=== PATIENT | female | born 1935 | race Caucasian/White ===

== ENCOUNTER 2017-05-11 11:00 | Inpatient (IN) | payer MEDICARE, OTHER ==
--- NOTE | 2017-05-16 16:20 | HISTORY AND PHYSICAL ---
PROVIDER: Date of Admission: 05/17/17 Admitting Provider: DANNIE UGALDE MD Attending Provider: DANNIE UGALDE MD Primary Care Provider: CHIEF COMPLAINT: Left knee pain HISTORY OF PRESENT ILLNESS: The patient is an 81-year-old female with a long-standing history of left knee pain and underlying osteoarthritis of the knee. She has failed long-term nonoperative management including injections, activity modification, and medications. Her symptoms have become quite severe, limiting her activities of daily living. Radiographs confirm the presence of severe arthrosis of the knee , and she is therefore being admitted for left total knee arthroplasty. PAST MEDICAL HISTORY: Breast cancer, basal cell carcinoma, hyperlipidemia, and hypertension. SOCIAL HISTORY: The patient is a non-smoker and denies alcohol use. FAMILY HISTORY: Noncontributory MEDICATIONS: Oxybutynin, losartan. ALLERGIES: No known drug allergies. REVIEW OF SYSTEMS: Negative the review of systems is negative for any recent illness, and is also negative for chest pain, shortness of breath, or unexplained fever or weight loss. The review of systems is otherwise noncontributory. PHYSICAL EXAMINATION: GENERAL:Well-appearing senior female, no apparent distress, alert and oriented 3. INTEGUMENTARY:Clear HEAD AND NECK:NC/AT EOMI CHEST AND LUNG:Lungs clear to auscultation CARDIOVASCULAR:Regular rate and rhythm without murmur ABDOMEN:Soft, normoactive bowel sounds NEUROLOGIC:Nonfocal MUSCULOSKELETAL:Physical examination of the left knee reveals that there is mild soft tissue swelling but no effusion. She has no obvious deformity, although there is little bit of varus position of the left knee. She has full extension and flexes to 125. There is no varus or valgus instability and a negative Burton. She is tender to palpation at the medial joint line. IMAGING: Plain radiographs of the knee reveal marked joint space narrowing of the medial compartment, with associated sclerosis and subchondral irregularity. She has fairly severe patellofemoral arthrosis, and mild lateral compartment arthrosis. Assessment and Plan - Date of Encounter Date of Encounter: 05/16/17 (1) Primary osteoarthritis of left knee Status: Chronic Assessment and plan: Assessment: Severe osteoarthritis of the left knee, with the area of worst involvement being that of the medial compartment. Plan: The patient will be admitted to the hospital and taken to the operating room for left total knee arthroplasty. We have discussed the operation, risks, and indications. The risks of the procedure include but are not limited to: Infection, blood vessel or nerve injury, persistent pain or stiffness in the knee, premature failure or loosening of the implants, or deep vein thrombosis which could potentially lead to a fatal pulmonary embolism. The patient has acknowledged the risks and desires to proceed as planned.
[2017-05-17] MEDS ORDERED: MIDAZOLAM HCL 2 MG/2 ML SYR IV PRN ×2 (07:16→09:01)
[2017-05-17] MEDS ORDERED: FAMOTIDINE IN SALINE, ISO-OSM 20 MG/50 ML PIGGYBACK IV SCH ×2 (07:16→09:01)
[2017-05-17] MEDS ORDERED: LIDOCAINE HCL 1% 20 ML VIAL SUBCUT PRN ×2 (07:16→09:01)
[2017-05-17] MEDS ORDERED: LACTATED RINGERS 1,000 ML IV SCH ×4 (08:00→14:01)
[2017-05-17] MEDS ORDERED: TRANEXAMIC ACID 1,000 MG in NORMAL SALINE 100 ML IV SCH ×2 (09:00→09:01)
[2017-05-17] MEDS ORDERED: ceFAZolin 1 GM in NORMAL SALINE MINI-BAG+ 100 ML IV PRN ×2 (09:00→09:01)
[2017-05-17] MEDS ORDERED: TRANEXAMIC ACID 1,000 MG/10 ML VIAL IV ONE (09:55)
[2017-05-17] MEDS ORDERED: NORFLURANE/HFC 245FA 1 APPLIC CAN TOPICAL ONE (09:55)
[2017-05-17] MEDS ORDERED: MIDAZOLAM HCL 2 MG/2 ML VIAL ONE ×2 (11:19→11:21)
[2017-05-17] MEDS ORDERED: FENTANYL 100 MCG/2 ML VIAL ONE (11:19)
[2017-05-17] MEDS ORDERED: MORPHINE SULFATE/PF 10 MG/10 ML VIAL ONE (11:20)
[2017-05-17] MEDS ORDERED: EPHEDrine SULFATE 50 MG/ML VIAL ONE (11:22)
[2017-05-17] MEDS ORDERED: NORMAL SALINE FLUSH 30 ML ONE (11:36)
[2017-05-17] MEDS ORDERED: KETOROLAC TROMETHAMINE 30 MG/ML VIAL ONE (11:36)
[2017-05-17] MEDS ORDERED: ROPIVACAINE HCL 0.5% 30 ML ONE (11:36)
[2017-05-17] MEDS ORDERED: BUPIVACAINE/EPI 0.5% 50 ML VIAL INFILTRAT ONE (11:37)
[2017-05-17] MEDS ORDERED: LIDOCAINE HCL 1% 20 ML VIAL ONE (12:10)
[2017-05-17] MEDS ORDERED: DIPHENHYDRAMINE 25 MG CAPSULE PO PRN (14:01)
[2017-05-17] MEDS ORDERED: MORPHINE SULFATE 10 MG/ML SYR IV PRN (14:01)
[2017-05-17] MEDS ORDERED: NALOXONE HCL 0.4 MG/ML VIAL IV PRN ×3 (14:01)
[2017-05-17] MEDS ORDERED: NALBUPHINE HCL 10 MG/ML AMP IV PRN (14:01)
[2017-05-17] MEDS ORDERED: DIPHENHYDRAMINE 50 MG/ML VIAL IV PRN (14:01)
[2017-05-17] MEDS ORDERED: ONDANSETRON HCL 4 MG/2 ML VIAL IV PRN (14:01)
[2017-05-17] MEDS ORDERED: FENTANYL 100 MCG/2 ML VIAL IV PRN (14:01)
[2017-05-17] MEDS ORDERED: MORPHINE SULFATE 2 MG/ML SYR IV PRN (14:21)
--- NOTE | 2017-05-17 14:32 | PROCEDURE NOTE: Orthopedics ---
Orthopedic Procedure note - Brief Operative Note Date of procedure: 05/17/17 Pre-Op Diagnosis: SEVERE ARTHRITIS OF LEFT KNEE Post-op diagnosis: same Implants: KOBE PERSONA-NATURAL TIBIA CEMENTED- LOT#[id number], REF#[id number], EXP-03/30/2027. KOBE PERSONA FEMUR, TRABECULAR METAL, LOT#[id number], REF# [id number], EXP 10/30/2025. KOBE PERSONA ALL POLY PATELLA, CEMENTED.29MM X 8.0MM, LOT#[id number], REF#[id number], EXP 03/30/2025 Anesthesia Type: Block/ General Physician: DANNIE UGALDE Estimated Blood Loss: 20 Total Tourniquet Time (mins): 115 Specimen/Pathology: none sent Sponge/instrument count: correct X-ray/Fluoroscopy: No Condition: stable Disposition: PACU
[2017-05-17] MEDS: LACTATED RINGERS 1,000 ML IV SCH (16:23)
[2017-05-17] MEDS: ceFAZolin 1 GM in NORMAL SALINE MINI-BAG+ 100 ML IV SCH (16:24)
--- NOTE | 2017-05-17 20:08 | OPERATIVE NOTE: Orthopedic ---
DATE OF SURGERY: 05/17/17 SURGEON: Armand ANESTHESIA: Spinal block PREOPERATIVE DIAGNOSIS: Severe osteoarthritis of the left knee POSTOPERATIVE DIAGNOSIS: Same as above PROCEDURE PERFORMED: Left total knee arthroplasty IMPLANTS: Biomet Persona knee, size 8 uncemented femoral component, size D cemented tibial component, with a medial congruent 11 mm polyethylene insert INDICATION FOR PROCEDURE: The patient is an 81-year-old female with a long-standing history of osteoarthritis of her left knee. She has failed long-term nonoperative management, and her symptoms have become so severe that they severely limit her activities of daily living. Radiographs confirm the presence of severe osteoarthritis of the left knee, and therefore she was taken to the operating room for left total knee arthroplasty. SUMMARY: After informed consent was obtained, the patient was taken to the operating room where she was placed in the supine position under spinal block anesthesia. After adequate anesthesia was achieved the left knee lower extremity were prepped and draped in usual sterile fashion, the limb was gently exsanguinated, and a tourniquet was inflated about the proximal thigh to 275 mmHg. A longitudinal incision was then performed anteriorly, and the subcutaneous tissue was sharply dissected down to the extensor retinaculum. The extensor retinaculum was incised in a median parapatellar fashion, and then dissection was carried out beneath the retinaculum medially in order to expose the medial tibial plateau. The patella was then partially everted, and the infrapatellar fat pad was excised. The patella was then retracted laterally, and the knee was brought up into extension. A meniscectomy was performed, and the anterior cruciate ligament was excised. Also a synovectomy was performed in the suprapatellar pouch. A rongeur was then used to remove osteophytes, and to establish the starting position for the femoral intramedullary guide. The drill was used to establish entry into the femoral canal, and then the femoral guide was pushed up into the medullary canal. The femoral cutting block was initially positioned to resect 11 mm, but that appear to be a generous resection, so we went with in the -2 position. The block was secured using pins, and then the oscillating saw was used to perform the distal femoral osteotomy. Attention was then focused on the proximal tibia at which time the tibial guide was positioned in order to allow resection of 10 mm from the less involved side. Once proper position was achieved, the cutting guide was held in place using pins and an oscillating saw was used to perform a tibial cut. The resected portion of the tibia was then removed, and we used the soft tissue balancing block and extension to check the gap. The 10 mm block was somewhat tight, and therefore we brought the knee back up into flexion, and repositioned the femoral cutting guide in order to resect the additional 2 mm. This time we placed the knee into extension, the block was quite stable with the knee in full extension. The knee was then brought back up into flexion, and the femur was sized to a size 8. The four-way cutting block was positioned under the distal femur and again held in place using pins. The remaining cuts were then performed using oscillating saw. The trial femoral components and trial tibial components were then placed into the knee, and the knee was brought out into extension. Once again the knee easily achieved full extension, and had very slight opening with valgus stress but was otherwise stable. Also she had very good rollback in flexion. The remainder of the tibial preparation was then completed using the drill and keel punch. The patella was then prepared, by first measuring the thickness, after which we resected 10 mm from the articular side of the patella in order to accommodate the patellar button. The guide was clamped onto the patella and the drill holes were then performed through the guide. The knee was again brought up into flexion, and the lug holes were drilled in the distal femur as well. At that time, all of the trial components were removed, and the wound and bony surfaces were all irrigated with copious muscle sterile saline under pulsed lavage. We then injected the posterior joint capsule as well as the medial and lateral joint capsules with the orthopedic cocktail. The proximal tibia was then carefully dried, after which the tibial component was cemented into place. The excess cement was removed, and then the femoral surface was also lavaged after which the uncemented femoral component was tapped into place. Once again the trial liner was placed into the knee and the knee was brought out into extension in order to allow the cement to harden. The patella was then lavaged and carefully dried, after which the patellar component was also cemented into place. Once again the excess cement was removed. Once all the cement had hardened, we reduced the patella and move the knee through range of motion. The patella was noted to track quite well. Once again there is very good rollback, but this time the patient appear to have slight hyperextension and also again was noted to have a little bit of opening with valgus stress. Therefore we decided to trial an 11 mm insert. This insert actually still provided very good rollback, as well as full extension. However, there is now better stability with valgus stress. We therefore selected the 11 mm insert. The wound was irrigated once again with copious amounts of sterile, and then the polyethylene insert was pushed into position. We checked range of motion and stability one last time, and once again she was noted to have full extension , very good rollback in flexion, and good varus and valgus stability as well as patellar tracking. A deep drain was then placed, and the retinaculum was closed using #2 FiberWire in the high tension areas, and #1 Vicryl in an interrupted [id number] fashion for the remainder of the retinaculum. The remainder of the orthopedic cocktail was then injected along the retinacular incision. The subcutaneous tissue was closed in layers using 0 and 2-0 Vicryl, and then the skin was closed using skin stephanie. A bulky lightly compressive sterile dressing was then applied. The patient tolerated the procedure well and was taken to the recovery room in stable condition. ESTIMATED BLOOD LOSS: 20 mL FLUIDS: 1450 mL TOURNIQUET TIME: 115 minutes
[2017-05-17] MEDS: CELECOXIB 100 MG CAPSULE PO SCH (21:33)
[2017-05-17] MEDS: DOCUSATE SODIUM 100 MG CAPSULE PO SCH (21:33)
[2017-05-18] MEDS: ceFAZolin 1 GM in NORMAL SALINE MINI-BAG+ 100 ML IV SCH ×2 (00:35→06:48)
[2017-05-18] MEDS: LACTATED RINGERS 1,000 ML IV SCH ×2 (05:13→18:16)
[2017-05-18 06:54] LABS: BLOOD UREA NITROGEN 11 mg/dL (7-17); CALCIUM 8.5 mg/dL (8.4-10.2); CHLORIDE 104 mmol/L (98-107); GLUCOSE 112 mg/dL (70-100); POTASSIUM 3.7 mmol/L (3.5-5.1); SODIUM 138 mmol/L (137-145)
[2017-05-18 07:00] LABS: HEMATOCRIT 42.5 % (36.0-48.0); HEMOGLOBIN 14.5 g/dL (12.0-16.0); MEAN CORPUSCULAR HEMOGLOBIN 32.6 pg (29.0-35.0); RED BLOOD COUNT 4.46 X 10^6uL (4.20-6.10); WHITE BLOOD COUNT 8.2 X 10^3uL (3.9-10.7)
[2017-05-18 07:01] LABS: BASOPHIL# 0.1 X 10^3uL (0.0-0.1); BASOPHILS 0.6 % (0.0-2.0); EOSINOPHILS 1.9 % (0.0-6.0); EOSINOPHILS# 0.2 X 10^3uL (0.0-0.4); LYMPHOCYTES 17.5 % (20.0-40.0); LYMPHOCYTES# 1.4 X 10^3uL (0.8-3.8); MEAN CORPUS. HGB CONCENTRATION 34.2 g/dL (32.0-36.0); MEAN PLATELET VOLUME 9.2 fL (7.4-10.4); MONOCYTES# 0.8 X 10^3uL (0.2-1.0); NEUTROPHILS# 5.8 X 10^3uL (2.6-6.7); PLATELET COUNT 167 X 10^3uL (130-440); RED CELL DISTRIBUTION WIDTH 12.1 % (11.5-14.5)
--- NOTE | 2017-05-18 08:20 | PROGRESS NOTE: Orthopedics ---
Orthopedic PN Subjective - Subjective Principal Diagnosis: Post op L TKA Post-op Day: 1 Interval history: Pt feels fairly well. Moderate pain. Ortho PN Objective Exam - Latest Vital Signs and I&O Latest Vital Signs/I&O: Vital Signs Temp 36.6 C 05/18/17 06:36 Pulse 73 05/18/17 06:36 Resp 15 05/18/17 06:36 BP 163/76 05/18/17 06:36 Pulse Ox 93 05/18/17 06:36 Intake & Output 05/17/17 05/18/17 05/18/17 17:59 05:59 17:59 Intake Total 2400 1918 Output Total 1750 560 Balance 650 1358 Weight 82.1 kg 82.1 kg Intake: IV 2200 1118 Left Hand 2200 1118 Oral 200 800 Output: Drainage 210 Left Knee 210 Urine 1750 350 Uretheral (Kaufman) 200 Other: Urine Appearance Clear Clear Urine Color Pale Straw Uretheral (Kaufman) Yellow Voiding Method Indwelling Catheter Indwelling Catheter # Voids 1 - Post-Operative Exam Dressing Status: dry & intact Drainage Amount: none Active Motor: intact Sensation: intact - Lab Labs: Laboratory Last Values WBC 8.2 X 10^3uL (3.9-10.7) 05/18/17 05:00 RBC 4.46 X 10^6uL (4.20-6.10) 05/18/17 05:00 Hgb 14.5 g/dL (12.0-16.0) 05/18/17 05:00 Hct 42.5 % (36.0-48.0) 05/18/17 05:00 MCV 95.0 fL (80.0-100.0) 05/18/17 05:00 MCH 32.6 pg (29.0-35.0) 05/18/17 05:00 MCHC 34.2 g/dL (32.0-36.0) 05/18/17 05:00 RDW 12.1 % (11.5-14.5) 05/18/17 05:00 Plt Count 167 X 10^3uL (130-440) 05/18/17 05:00 MPV 9.2 fL (7.4-10.4) 05/18/17 05:00 Neutrophils % 70.0 % (54.0-75.0) 05/18/17 05:00 Lymphocytes % 17.5 % (20.0-40.0) L 05/18/17 05:00 Eosinophils % 1.9 % (0.0-6.0) 05/18/17 05:00 Basophils % 0.6 % (0.0-2.0) 05/18/17 05:00 Neutrophils # 5.8 X 10^3uL (2.6-6.7) 05/18/17 05:00 Lymphocytes # 1.4 X 10^3uL (0.8-3.8) 05/18/17 05:00 Monocytes 10.0 % (2.0-10.0) 05/18/17 05:00 Monocytes # 0.8 X 10^3uL (0.2-1.0) 05/18/17 05:00 Eosinophils # 0.2 X 10^3uL (0.0-0.4) 05/18/17 05:00 Basophils # 0.1 X 10^3uL (0.0-0.1) 05/18/17 05:00 Sodium 138 mmol/L (137-145) 05/18/17 05:00 Potassium 3.7 mmol/L (3.5-5.1) 05/18/17 05:00 Chloride 104 mmol/L (98-107) 05/18/17 05:00 Carbon Dioxide 24 mmol/L (22-30) 05/18/17 05:00 BUN 11 mg/dL (7-17) 05/18/17 05:00 Creatinine 0.7 mg/dL (0.5-1.0) 05/18/17 05:00 GFR Calculation Not Reportable 05/18/17 05:00 Glucose 112 mg/dL (70-100) H 05/18/17 05:00 Hemoglobin A1c 6.1 % 05/17/17 09:40 Calcium 8.5 mg/dL (8.4-10.2) 05/18/17 05:00 Assessment and Plan-Ortho - Date of Encounter Date of Encounter: 05/18/17 (1) Primary osteoarthritis of left knee Status: Chronic Assessment and plan: Doing well post op L TKA Plan: Begin mobilization/PT. Monitor H/H Current Visit: Yes Quality Questions - VTE Prophylaxis Assessment VTE Present on Admission?: No Patient at risk for venous thromboembolism?: Yes VTE Risk Level: High Risk Pharmaceutical VTE prophylaxis contraindication reason: N/A- VTE prophylaxsis ordered Mechanical VTE prophylaxis contraindication reason: N/A- VTE prophylaxsis ordered
[2017-05-18] MEDS ORDERED: ENALAPRILAT DIHYDRATE 1.25 MG/ML VIAL IV PRN (08:50)
--- NOTE | 2017-05-18 08:58 | PROGRESS NOTE: IM APSO ---
Assessment and Plan - Date of Encounter Date of Encounter: 05/18/17 (1) Hypertension Status: Acute Assessment and plan: (asked to review medical comorbidity post op, addressing pain/htn/urge incontinenc) Pain control adequate, increasing losartan, added prn vasotec and will follow; preop EKG with Normal possible/borderline LVH Current Visit: Yes (2) Mixed urge and stress incontinence Status: Acute Assessment and plan: currently mittal, will try to dc soon, ammended oxybutinin, follow sx/sx of urge/ stress incontinence and will also monitor for sx/sx of uti. Current Visit: Yes (3) Primary osteoarthritis of left knee Status: Chronic Assessment and plan: now s/p tka, monitor pain/progress with PT, hemoglobin. Routine post op care per ortho. Current Visit: Yes - Time Spent With Patient Total time spent with greater than 50% in coordination of care (as documented) at patient's floor/unit and/or counseling patient: 25 - 35 minutes IM: PN Subjective General: pain, no fever, no chills (Patient seen May 09 for PreOp examination, she was noted to have urge frequency and intermittent incontinence which was worrisome for risk of fall nocte post op. She also had a normal EKG but elevated blood pressure and started Losartan. Symptoms of urge frequency and home Blood Pressure evaluations improved. She has done well post op, pain control adequate when takes medications. Has mittal. She is currently being seen by PT (Grace Cartwright DPT)) HEENT: no headache Cardiovascular: no chest pain, no chest pressure, no palpitations Respiratory: no cough Gastrointestinal: no abdominal pain Musculoskeletal: pain Neurological: other IM: PN Objective Exam - I&O/Vital Signs I&O: Intake & Output 05/17/17 05/18/17 05/18/17 21:59 05:59 13:59 Intake Total 2400 1918 Output Total 1680 430 Balance 720 1488 Weight 82.1 kg Intake: IV 2200 1118 Left Hand 2200 1118 Oral 200 800 Output: Drainage 130 80 Left Knee 130 80 Urine 1550 350 Other: Urine Appearance Clear Clear Urine Color Pale Straw Voiding Method Indwelling Catheter Indwelling Catheter # Voids 1 Vital Signs: Last Vital Signs Temp 36.6 C 05/18/17 06:36 Pulse 73 05/18/17 06:36 Resp 15 05/18/17 06:36 BP 163/76 05/18/17 06:36 Pulse Ox 93 05/18/17 06:36 Oxygen Flow Rate 0.5 Oxygen Delivery Method Nasal Cannula - Constitutional General appearance: Present: average body habitus - Head Head exam: Present: atraumatic - Eye Eye exam: Present: normal appearance - ENT ENT exam: Present: mucous membranes moist - Respiratory Respiratory exam: Present: CTAB - Cardiovascular Cardiovascular exam: Present: RRR - GI/Abdominal GI/Abdominal exam: Present: normal bowel sounds, soft. Absent: tenderness - Lab Labs: Laboratory Last Values WBC 8.2 X 10^3uL (3.9-10.7) 05/18/17 05:00 RBC 4.46 X 10^6uL (4.20-6.10) 05/18/17 05:00 Hgb 14.5 g/dL (12.0-16.0) 05/18/17 05:00 Hct 42.5 % (36.0-48.0) 05/18/17 05:00 MCV 95.0 fL (80.0-100.0) 05/18/17 05:00 MCH 32.6 pg (29.0-35.0) 05/18/17 05:00 MCHC 34.2 g/dL (32.0-36.0) 05/18/17 05:00 RDW 12.1 % (11.5-14.5) 05/18/17 05:00 Plt Count 167 X 10^3uL (130-440) 05/18/17 05:00 MPV 9.2 fL (7.4-10.4) 05/18/17 05:00 Neutrophils % 70.0 % (54.0-75.0) 05/18/17 05:00 Lymphocytes % 17.5 % (20.0-40.0) L 05/18/17 05:00 Eosinophils % 1.9 % (0.0-6.0) 05/18/17 05:00 Basophils % 0.6 % (0.0-2.0) 05/18/17 05:00 Neutrophils # 5.8 X 10^3uL (2.6-6.7) 05/18/17 05:00 Lymphocytes # 1.4 X 10^3uL (0.8-3.8) 05/18/17 05:00 Monocytes 10.0 % (2.0-10.0) 05/18/17 05:00 Monocytes # 0.8 X 10^3uL (0.2-1.0) 05/18/17 05:00 Eosinophils # 0.2 X 10^3uL (0.0-0.4) 05/18/17 05:00 Basophils # 0.1 X 10^3uL (0.0-0.1) 05/18/17 05:00 Sodium 138 mmol/L (137-145) 05/18/17 05:00 Potassium 3.7 mmol/L (3.5-5.1) 05/18/17 05:00 Chloride 104 mmol/L (98-107) 05/18/17 05:00 Carbon Dioxide 24 mmol/L (22-30) 05/18/17 05:00 BUN 11 mg/dL (7-17) 05/18/17 05:00 Creatinine 0.7 mg/dL (0.5-1.0) 05/18/17 05:00 GFR Calculation Not Reportable 05/18/17 05:00 Glucose 112 mg/dL (70-100) H 05/18/17 05:00 Hemoglobin A1c 6.1 % 05/17/17 09:40 Calcium 8.5 mg/dL (8.4-10.2) 05/18/17 05:00 (1) Hypertension Qualifiers: Hypertension type: essential hypertension Qualified Code(s): I10 - Essential (primary) hypertension
[2017-05-18] MEDS ORDERED: OXYBUTYNIN CHLORIDE 5 MG PO SCH (09:00)
[2017-05-18] MEDS ORDERED: NON-FORMULARY MEDICATION (Losartan Potassium 25 MG) PO SCH (09:00)
[2017-05-18] MEDS ORDERED: LOSARTAN POTASSIUM 50 MG TABLET PO SCH (09:00)
[2017-05-18] MEDS ORDERED: OXYBUTYNIN CHLORIDE 5 MG TABLET PO SCH (09:00)
[2017-05-18] MEDS: ONDANSETRON HCL 4 MG/2 ML VIAL IV PRN (09:45)
[2017-05-18] MEDS: DOCUSATE SODIUM 100 MG CAPSULE PO SCH ×2 (09:46→20:47)
[2017-05-18] MEDS: LOSARTAN POTASSIUM 50 MG TABLET PO SCH (09:47)
[2017-05-18] MEDS: CELECOXIB 100 MG CAPSULE PO SCH ×2 (09:47→20:47)
[2017-05-18] MEDS: ENOXAPARIN SODIUM 40 MG/0.4 ML SYR SUBCUT SCH (09:48)
[2017-05-18] MEDS: MULTIVITAMINS THERAPEUTIC 1 TABLET PO SCH (09:48)
[2017-05-18] MEDS: OXYBUTYNIN CHLORIDE 5 MG TABLET PO SCH ×2 (09:49→20:50)
[2017-05-18] MEDS ORDERED: ACETAMINOPHEN 325 MG TABLET PO ONE (20:40)
[2017-05-18] MEDS: ACETAMINOPHEN 325 MG TABLET PO PRN (21:12)
[2017-05-19] MEDS: ACETAMINOPHEN 325 MG TABLET PO PRN ×4 (04:05→18:22)
[2017-05-19] MEDS: LACTATED RINGERS 1,000 ML IV SCH (06:27)
[2017-05-19 06:45] LABS: HEMATOCRIT 35.9 % (36.0-48.0); HEMOGLOBIN 12.1 g/dL (12.0-16.0)
[2017-05-19] MEDS: CELECOXIB 100 MG CAPSULE PO SCH ×2 (08:51→20:43)
[2017-05-19] MEDS: ENOXAPARIN SODIUM 40 MG/0.4 ML SYR SUBCUT SCH (08:51)
[2017-05-19] MEDS: OXYBUTYNIN CHLORIDE 5 MG TABLET PO SCH ×2 (08:51→21:00)
[2017-05-19] MEDS: MULTIVITAMINS THERAPEUTIC 1 TABLET PO SCH (08:51)
[2017-05-19] MEDS: DOCUSATE SODIUM 100 MG CAPSULE PO SCH ×2 (08:51→20:43)
[2017-05-19] MEDS: LOSARTAN POTASSIUM 50 MG TABLET PO SCH (08:52)
[2017-05-19] MEDS: ONDANSETRON HCL 4 MG/2 ML VIAL IV PRN (09:51)
[2017-05-19] MEDS ORDERED: MAGNESIUM HYDROXIDE 30 ML UDC PO PRN (10:47)
[2017-05-19] MEDS ORDERED: LOSARTAN POTASSIUM 50 MG TABLET PO SCH (10:48)
--- NOTE | 2017-05-19 10:53 | PROGRESS NOTE: IM APSO ---
Assessment and Plan - Date of Encounter Date of Encounter: 05/19/17 (1) Hypertension Status: Acute Assessment and plan: (asked to review medical comorbidity post op, addressing pain/htn/urge incontinenc) Pain control adequate, continuing losartan, added prn vasotec and will follow; preop EKG with Normal possible/borderline LVH. Now orthostatic likely meds/dehydration related, will bolus fluids and document orthostatic vitals. Current Visit: Yes (2) Mixed urge and stress incontinence Status: Acute Assessment and plan: currently mittal, will try to dc soon, ammended oxybutinin, follow sx/sx of urge/ stress incontinence and will also monitor for sx/sx of uti. Current Visit: Yes (3) Primary osteoarthritis of left knee Status: Chronic Assessment and plan: now s/p tka, monitor pain/progress with PT, hemoglobin. Routine post op care per ortho. Does seem a little dehydrated and orthostatiic. Check vitals, bolus fluids, encourage PO. She is constipated (usually daily BM nil since admit) increase bowel regimen as well. Hypoxia earlier with ambulation, improved at rest without supplementation, normal cardiac and pulm exams. Current Visit: Yes - Time Spent With Patient Total time spent with greater than 50% in coordination of care (as documented) at patient's floor/unit and/or counseling patient: 25 - 35 minutes IM: PN Subjective General: pain, no fever, no chills (Patient seen May 09 for PreOp examination, she was noted to have urge frequency and intermittent incontinence which was worrisome for risk of fall nocte post op. She also had a normal EKG but elevated blood pressure and started Losartan. Symptoms of urge frequency and home Blood Pressure evaluations improved. She has done well post op, pain control adequate when takes medications. Has mittal. She is currently being seen by PT (Grace Cartwright DPT)) HEENT: no headache Cardiovascular: no chest pain, no chest pressure, no palpitations Respiratory: other (though noted weak and orthostatic with PT today, pulse ox at that time 75%, nauseated. Resumed O2 and weakness/hypoxia/nausea all abated. ), no cough, no SOB Gastrointestinal: nausea, constipation, no abdominal pain Genitourinary: other (mittal) Musculoskeletal: pain IM: PN Objective Exam - I&O/Vital Signs I&O: Intake & Output 05/18/17 05/19/17 05/19/17 21:59 05:59 13:59 Intake Total 3131 971 6272 Output Total 325 450 Balance 1305 -50 1006 Intake: IV 800 1006 Left Hand 800 1006 Oral 830 400 Output: Urine 325 450 Other: Urine Appearance Clear Clear Clear Urine Color Yellow Yellow Yellow Voiding Method Indwelling Catheter Indwelling Catheter Indwelling Catheter Vital Signs: Last Vital Signs Temp 37.1 C 05/19/17 05:54 Pulse 63 05/19/17 05:54 Resp 12 05/19/17 09:00 BP 109/46 05/19/17 05:54 Pulse Ox 92 05/19/17 09:00 Oxygen Flow Rate 1 Oxygen Delivery Method Nasal Cannula - Constitutional General appearance: Present: average body habitus - Head Head exam: Present: atraumatic - Eye Eye exam: Present: normal appearance - ENT ENT exam: Present: mucous membranes dry, mucous membranes moist - Respiratory Respiratory exam: Present: CTAB - Cardiovascular Cardiovascular exam: Present: RRR - GI/Abdominal GI/Abdominal exam: Present: normal bowel sounds, soft. Absent: tenderness - Extremities Exam Extremities exam: Absent: calf tenderness, normal capillary refill (delayed 2-3 seconds) - Allied Health Notes Allied health notes reviewed: nursing, PT - Lab Labs: Laboratory Last Values WBC 8.2 X 10^3uL (3.9-10.7) 05/18/17 05:00 RBC 4.46 X 10^6uL (4.20-6.10) 05/18/17 05:00 Hgb 12.1 g/dL (12.0-16.0) 05/19/17 04:40 Hct 35.9 % (36.0-48.0) L 05/19/17 04:40 MCV 95.0 fL (80.0-100.0) 05/18/17 05:00 MCH 32.6 pg (29.0-35.0) 05/18/17 05:00 MCHC 34.2 g/dL (32.0-36.0) 05/18/17 05:00 RDW 12.1 % (11.5-14.5) 05/18/17 05:00 Plt Count 167 X 10^3uL (130-440) 05/18/17 05:00 MPV 9.2 fL (7.4-10.4) 05/18/17 05:00 Neutrophils % 70.0 % (54.0-75.0) 05/18/17 05:00 Lymphocytes % 17.5 % (20.0-40.0) L 05/18/17 05:00 Eosinophils % 1.9 % (0.0-6.0) 05/18/17 05:00 Basophils % 0.6 % (0.0-2.0) 05/18/17 05:00 Neutrophils # 5.8 X 10^3uL (2.6-6.7) 05/18/17 05:00 Lymphocytes # 1.4 X 10^3uL (0.8-3.8) 05/18/17 05:00 Monocytes 10.0 % (2.0-10.0) 05/18/17 05:00 Monocytes # 0.8 X 10^3uL (0.2-1.0) 05/18/17 05:00 Eosinophils # 0.2 X 10^3uL (0.0-0.4) 05/18/17 05:00 Basophils # 0.1 X 10^3uL (0.0-0.1) 05/18/17 05:00 Sodium 138 mmol/L (137-145) 05/18/17 05:00 Potassium 3.7 mmol/L (3.5-5.1) 05/18/17 05:00 Chloride 104 mmol/L (98-107) 05/18/17 05:00 Carbon Dioxide 24 mmol/L (22-30) 05/18/17 05:00 BUN 11 mg/dL (7-17) 05/18/17 05:00 Creatinine 0.7 mg/dL (0.5-1.0) 05/18/17 05:00 GFR Calculation Not Reportable 05/18/17 05:00 Glucose 112 mg/dL (70-100) H 05/18/17 05:00 Hemoglobin A1c 6.1 % 05/17/17 09:40 Calcium 8.5 mg/dL (8.4-10.2) 05/18/17 05:00 (1) Hypertension Qualifiers: Hypertension type: essential hypertension Qualified Code(s): I10 - Essential (primary) hypertension
[2017-05-19] MEDS ORDERED: NORMAL SALINE 1,000 ML IV SCH (11:00)
--- NOTE | 2017-05-19 11:49 | PROGRESS NOTE: Orthopedics ---
Orthopedic PN Subjective - Subjective Principal Diagnosis: Post op L TKA Post-op Day: 2 Interval history: The patient feels well today, but again had some lightheadedness when she got up. When moving about on room air her oxygen saturation did drop into the 70s. Ortho PN Objective Exam - Latest Vital Signs and I&O Latest Vital Signs/I&O: Vital Signs Temp 37.1 C 05/19/17 05:54 Pulse 63 05/19/17 05:54 Resp 12 05/19/17 09:00 BP 109/46 05/19/17 05:54 Pulse Ox 92 05/19/17 09:00 Intake & Output 05/18/17 05/19/17 05/19/17 17:59 05:59 17:59 Intake Total 0642 695 3001 Output Total 325 450 Balance 1305 -50 1006 Weight 82.1 kg Intake: IV 800 1006 Left Hand 800 1006 Oral 830 400 Output: Urine 325 450 Other: Urine Appearance Clear Clear Clear Urine Color Yellow Yellow Yellow Voiding Method Indwelling Catheter Indwelling Catheter Indwelling Catheter - Post-Operative Exam Dressing Status: dry & intact Drainage Amount: none Distal Pulses: +2 Active Motor: intact Sensation: intact Shaji's sign: Negative Calf tenderness: no - Lab Labs: Laboratory Last Values WBC 8.2 X 10^3uL (3.9-10.7) 05/18/17 05:00 RBC 4.46 X 10^6uL (4.20-6.10) 05/18/17 05:00 Hgb 12.1 g/dL (12.0-16.0) 05/19/17 04:40 Hct 35.9 % (36.0-48.0) L 05/19/17 04:40 MCV 95.0 fL (80.0-100.0) 05/18/17 05:00 MCH 32.6 pg (29.0-35.0) 05/18/17 05:00 MCHC 34.2 g/dL (32.0-36.0) 05/18/17 05:00 RDW 12.1 % (11.5-14.5) 05/18/17 05:00 Plt Count 167 X 10^3uL (130-440) 05/18/17 05:00 MPV 9.2 fL (7.4-10.4) 05/18/17 05:00 Neutrophils % 70.0 % (54.0-75.0) 05/18/17 05:00 Lymphocytes % 17.5 % (20.0-40.0) L 05/18/17 05:00 Eosinophils % 1.9 % (0.0-6.0) 05/18/17 05:00 Basophils % 0.6 % (0.0-2.0) 05/18/17 05:00 Neutrophils # 5.8 X 10^3uL (2.6-6.7) 05/18/17 05:00 Lymphocytes # 1.4 X 10^3uL (0.8-3.8) 05/18/17 05:00 Monocytes 10.0 % (2.0-10.0) 05/18/17 05:00 Monocytes # 0.8 X 10^3uL (0.2-1.0) 05/18/17 05:00 Eosinophils # 0.2 X 10^3uL (0.0-0.4) 05/18/17 05:00 Basophils # 0.1 X 10^3uL (0.0-0.1) 05/18/17 05:00 Sodium 138 mmol/L (137-145) 05/18/17 05:00 Potassium 3.7 mmol/L (3.5-5.1) 05/18/17 05:00 Chloride 104 mmol/L (98-107) 05/18/17 05:00 Carbon Dioxide 24 mmol/L (22-30) 05/18/17 05:00 BUN 11 mg/dL (7-17) 05/18/17 05:00 Creatinine 0.7 mg/dL (0.5-1.0) 05/18/17 05:00 GFR Calculation Not Reportable 05/18/17 05:00 Glucose 112 mg/dL (70-100) H 05/18/17 05:00 Hemoglobin A1c 6.1 % 05/17/17 09:40 Calcium 8.5 mg/dL (8.4-10.2) 05/18/17 05:00 Assessment and Plan-Ortho - Date of Encounter Date of Encounter: 05/19/17 (1) Primary osteoarthritis of left knee Status: Chronic Assessment and plan: The patient is doing fairly well following left total knee arthroplasty. Plan: We will continue physical therapy and mobilization. She has had some drop in her H&H, although it is still well within safe limits. Also we will plan on dressing change tomorrow. Current Visit: Yes
[2017-05-19] MEDS ORDERED: NORMAL SALINE 500 ML IV ONE (13:42)
[2017-05-19] MEDS ORDERED: NORMAL SALINE 0 ML IV ONE (14:20)
[2017-05-19] MEDS: POLYETHYLENE GLYCOL 3350 17 GM POWD.PACK PO SCH ×2 (14:28→14:32)
[2017-05-20] MEDS: OXYBUTYNIN CHLORIDE 5 MG TABLET PO SCH ×2 (06:18→08:39)
[2017-05-20 06:30] VITALS: BP 125/65; PULSE 68; TEMP 98
[2017-05-20 07:29] LABS: HEMATOCRIT 36.6 % (36.0-48.0); HEMOGLOBIN 12.3 g/dL (12.0-16.0)
--- NOTE | 2017-05-20 08:28 | PROGRESS NOTE: Orthopedics ---
Orthopedic PN Subjective - Subjective Principal Diagnosis: Post op L TKA Post-op Day: 3 Interval history: The patient feels better today, and has had less lightheadedness when standing. She is currently being tested on room air for her oxygen saturation. Ortho PN Objective Exam - Latest Vital Signs and I&O Latest Vital Signs/I&O: Vital Signs Temp 36.7 C 05/20/17 06:29 Pulse 68 05/20/17 06:29 Resp 12 05/20/17 06:29 BP 125/65 05/20/17 06:29 Pulse Ox 97 05/20/17 06:29 Intake & Output 05/19/17 05/20/17 05/20/17 17:59 05:59 17:59 Intake Total 2296 600 Output Total 650 875 Balance 1646 -275 Intake: IV 1006 Left Hand 1006 Oral 1290 600 Output: Urine 650 875 Other: Urine Appearance Clear Clear Urine Color Straw Pale Voiding Method Indwelling Catheter Toilet # Voids 4 - Post-Operative Exam Incision: Present: clean and dry Drainage Amount: none Active Motor: intact Sensation: intact Shaji's sign: Negative Calf tenderness: no - Lab Labs: Laboratory Last Values WBC 8.2 X 10^3uL (3.9-10.7) 05/18/17 05:00 RBC 4.46 X 10^6uL (4.20-6.10) 05/18/17 05:00 Hgb 12.3 g/dL (12.0-16.0) 05/20/17 06:25 Hct 36.6 % (36.0-48.0) 05/20/17 06:25 MCV 95.0 fL (80.0-100.0) 05/18/17 05:00 MCH 32.6 pg (29.0-35.0) 05/18/17 05:00 MCHC 34.2 g/dL (32.0-36.0) 05/18/17 05:00 RDW 12.1 % (11.5-14.5) 05/18/17 05:00 Plt Count 167 X 10^3uL (130-440) 05/18/17 05:00 MPV 9.2 fL (7.4-10.4) 05/18/17 05:00 Neutrophils % 70.0 % (54.0-75.0) 05/18/17 05:00 Lymphocytes % 17.5 % (20.0-40.0) L 05/18/17 05:00 Eosinophils % 1.9 % (0.0-6.0) 05/18/17 05:00 Basophils % 0.6 % (0.0-2.0) 05/18/17 05:00 Neutrophils # 5.8 X 10^3uL (2.6-6.7) 05/18/17 05:00 Lymphocytes # 1.4 X 10^3uL (0.8-3.8) 05/18/17 05:00 Monocytes 10.0 % (2.0-10.0) 05/18/17 05:00 Monocytes # 0.8 X 10^3uL (0.2-1.0) 05/18/17 05:00 Eosinophils # 0.2 X 10^3uL (0.0-0.4) 05/18/17 05:00 Basophils # 0.1 X 10^3uL (0.0-0.1) 05/18/17 05:00 Sodium 138 mmol/L (137-145) 05/18/17 05:00 Potassium 3.7 mmol/L (3.5-5.1) 05/18/17 05:00 Chloride 104 mmol/L (98-107) 05/18/17 05:00 Carbon Dioxide 24 mmol/L (22-30) 05/18/17 05:00 BUN 11 mg/dL (7-17) 05/18/17 05:00 Creatinine 0.7 mg/dL (0.5-1.0) 05/18/17 05:00 GFR Calculation Not Reportable 05/18/17 05:00 Glucose 112 mg/dL (70-100) H 05/18/17 05:00 Hemoglobin A1c 6.1 % 05/17/17 09:40 Calcium 8.5 mg/dL (8.4-10.2) 05/18/17 05:00 Assessment and Plan-Ortho - Date of Encounter Date of Encounter: 05/20/17 (1) Primary osteoarthritis of left knee Status: Chronic Assessment and plan: The patient is doing fairly well, but slow to mobilize. Her orthostatic hypotension appears to be improving. Plan: She will not be able to be discharged to home just yet, so we will plan on discharging her to swing bed status and continue physical therapy and mobilization. Current Visit: Yes
[2017-05-20] MEDS: ENOXAPARIN SODIUM 40 MG/0.4 ML SYR SUBCUT SCH (08:38)
[2017-05-20] MEDS: DOCUSATE SODIUM 100 MG CAPSULE PO SCH (08:39)
[2017-05-20] MEDS: MULTIVITAMINS THERAPEUTIC 1 TABLET PO SCH (08:39)
[2017-05-20] MEDS: ACETAMINOPHEN 325 MG TABLET PO PRN (08:41)
[2017-05-20] MEDS: CELECOXIB 100 MG CAPSULE PO SCH (08:41)
[2017-05-20] MEDS: POLYETHYLENE GLYCOL 3350 17 GM POWD.PACK PO SCH (08:48)
--- NOTE | 2017-05-20 08:52 | PROGRESS NOTE: IM APSO ---
Assessment and Plan - Date of Encounter Date of Encounter: 05/20/17 (1) Hypertension Status: Acute Assessment and plan: (asked to review medical comorbidity post op, addressing pain/htn/urge incontinenc) Pain control adequate, continuing losartan, added prn vasotec and will follow; preop EKG with Normal possible/borderline LVH. Bolused and orthostasis improved Current Visit: Yes (2) Mixed urge and stress incontinence Status: Acute Assessment and plan: mittal DC'd, ammended oxybutinin, follow sx/sx of urge/stress incontinence and will also monitor for sx/sx of uti. but with frequency and recent mittal will check UA Current Visit: Yes (3) Primary osteoarthritis of left knee Status: Chronic Assessment and plan: now s/p tka, monitor pain/progress with PT, hemoglobin. Routine post op care per ortho. Does seem a little dehydrated and orthostatiic. Check vitals, bolus fluids, encourage PO. She is constipated (usually daily BM nil since admit) increase bowel regimen as well. Swingbed per ortho. Current Visit: Yes - Time Spent With Patient Total time spent with greater than 50% in coordination of care (as documented) at patient's floor/unit and/or counseling patient: 25 - 35 minutes IM: PN Subjective General: pain (improving), no fever, no chills (Patient seen May 09 for PreOp examination, she was noted to have urge frequency and intermittent incontinence which was worrisome for risk of fall nocte post op. She also had a normal EKG but elevated blood pressure and started Losartan. Symptoms of urge frequency and home Blood Pressure evaluations improved. She has done well post op, pain control adequate when takes medications. Has mittal. She is currently being seen by PT (Grace Cartwright DPT)) HEENT: no headache Cardiovascular: no chest pain, no chest pressure, no palpitations Respiratory: other (nausea better, not orthostatic, pain control improving but urinary frequency issue nocte after mittal DC'd.), no cough, no SOB Gastrointestinal: constipation, no abdominal pain, no nausea Musculoskeletal: pain IM: PN Objective Exam - I&O/Vital Signs I&O: Intake & Output 05/19/17 05/20/17 05/20/17 21:59 05:59 13:59 Intake Total 1490 400 Output Total 650 875 Balance 840 -475 Intake: Oral 1490 400 Output: Urine 650 875 Other: Urine Appearance Clear Clear Urine Color Straw Pale Voiding Method Bedside Commode Toilet # Voids 4 Vital Signs: Last Vital Signs Temp 36.7 C 05/20/17 06:29 Pulse 68 05/20/17 06:29 Resp 12 05/20/17 06:29 BP 125/65 05/20/17 06:29 Pulse Ox 97 05/20/17 06:29 Oxygen Flow Rate 2 Oxygen Delivery Method Nasal Cannula - Constitutional General appearance: Present: average body habitus - Head Head exam: Present: atraumatic - Eye Eye exam: Present: normal appearance - ENT ENT exam: Present: mucous membranes moist - Respiratory Respiratory exam: Present: CTAB - Cardiovascular Cardiovascular exam: Present: RRR - GI/Abdominal GI/Abdominal exam: Present: normal bowel sounds, soft. Absent: tenderness - Extremities Exam Extremities exam: Absent: calf tenderness, normal capillary refill (delayed 2-3 seconds) - Allied Health Notes Allied health notes reviewed: nursing, PT - Lab Labs: Laboratory Last Values WBC 8.2 X 10^3uL (3.9-10.7) 05/18/17 05:00 RBC 4.46 X 10^6uL (4.20-6.10) 05/18/17 05:00 Hgb 12.3 g/dL (12.0-16.0) 05/20/17 06:25 Hct 36.6 % (36.0-48.0) 05/20/17 06:25 MCV 95.0 fL (80.0-100.0) 05/18/17 05:00 MCH 32.6 pg (29.0-35.0) 05/18/17 05:00 MCHC 34.2 g/dL (32.0-36.0) 05/18/17 05:00 RDW 12.1 % (11.5-14.5) 05/18/17 05:00 Plt Count 167 X 10^3uL (130-440) 05/18/17 05:00 MPV 9.2 fL (7.4-10.4) 05/18/17 05:00 Neutrophils % 70.0 % (54.0-75.0) 05/18/17 05:00 Lymphocytes % 17.5 % (20.0-40.0) L 05/18/17 05:00 Eosinophils % 1.9 % (0.0-6.0) 05/18/17 05:00 Basophils % 0.6 % (0.0-2.0) 05/18/17 05:00 Neutrophils # 5.8 X 10^3uL (2.6-6.7) 05/18/17 05:00 Lymphocytes # 1.4 X 10^3uL (0.8-3.8) 05/18/17 05:00 Monocytes 10.0 % (2.0-10.0) 05/18/17 05:00 Monocytes # 0.8 X 10^3uL (0.2-1.0) 05/18/17 05:00 Eosinophils # 0.2 X 10^3uL (0.0-0.4) 05/18/17 05:00 Basophils # 0.1 X 10^3uL (0.0-0.1) 05/18/17 05:00 Sodium 138 mmol/L (137-145) 05/18/17 05:00 Potassium 3.7 mmol/L (3.5-5.1) 05/18/17 05:00 Chloride 104 mmol/L (98-107) 05/18/17 05:00 Carbon Dioxide 24 mmol/L (22-30) 05/18/17 05:00 BUN 11 mg/dL (7-17) 05/18/17 05:00 Creatinine 0.7 mg/dL (0.5-1.0) 05/18/17 05:00 GFR Calculation Not Reportable 05/18/17 05:00 Glucose 112 mg/dL (70-100) H 05/18/17 05:00 Hemoglobin A1c 6.1 % 05/17/17 09:40 Calcium 8.5 mg/dL (8.4-10.2) 05/18/17 05:00 (1) Hypertension Qualifiers: Hypertension type: essential hypertension Qualified Code(s): I10 - Essential (primary) hypertension
[2017-05-20 11:06] VITALS: RESP 14; O2SAT 94
== END 2017-05-20 09:10 | disposition swing bed (61) | DRG 494 ==
LOC: IN 05-17 07:20
PROVIDERS: ADMIT Orthopaedic Surgery; ATTEND Orthopaedic Surgery
PROC: 0QR Lower Bones, Replacement (ICD-10-PCS; principal; 2017-05-17)
DX: M17.12 Unilateral primary osteoarthritis, left knee (principal); Z85.3 Personal history of malignant neoplasm of breast; Z85.828 Personal history of other malignant neoplasm of skin; K57.90 Diverticulosis of intestine, part unspecified, without perforation or abscess without bleeding; R03.0 Elevated blood-pressure reading, without diagnosis of hypertension; R53.1 Weakness; E78.5 Hyperlipidemia, unspecified; N39.46 Mixed incontinence; M15.9 Polyosteoarthritis, unspecified; Z79.899 Other long term (current) drug therapy
CPT/HCPCS: 36415; 80048; 83036; 85014; 85018; 85025; C1776; J0171; J0690; J1650; J1885; J2250; J2270; J2405; J2795; J3010; J7030; J7040; J7120; S0020

== ENCOUNTER 2017-05-20 09:12 | Inpatient (IN) | payer MEDICARE, OTHER ==
[2017-05-20 14:22] LABS: URINE APPEARANCE CLEAR; URINE COLOR YELLOW; URINE MUCUS NONE SEEN (Up to 25%); URINE RBC NONE SEEN (0-5/hpf)
[2017-05-20 14:23] LABS: URINE BILIRUBIN NEGATIVE (NEGATIVE); URINE BLOOD NEGATIVE (NEGATIVE); URINE GLUCOSE NORMAL (NEGATIVE); URINE KETONE NEGATIVE (NEGATIVE); URINE LEUKOCYTE ESTERASE NEGATIVE (NEGATIVE); URINE NITRITE NEGATIVE (NEGATIVE); URINE PROTEIN NEGATIVE (NEG - TRACE); URINE SPECIFIC GRAVITY < or = 1.005 (0.001-1.035); URINE UROBILINOGEN 0.2mg/dL (Normal) (NEG-1mg/dL)
[2017-05-20 14:26] LABS: URINE BACTERIA NONE SEEN (<10/hpf); URINE WBC 0-4/hpf (0-4/hpf)
[2017-05-20] MEDS ORDERED: ENALAPRILAT DIHYDRATE 1.25 MG/ML VIAL IV PRN (15:24)
[2017-05-20] MEDS ORDERED: ONDANSETRON HCL 4 MG/2 ML VIAL IV PRN (15:24)
[2017-05-20] MEDS ORDERED: MAGNESIUM HYDROXIDE 30 ML UDC PO PRN (15:24)
[2017-05-20] MEDS ORDERED: VITAMIN D3 PO SCH ×2 (15:30→16:53)
[2017-05-20] MEDS ORDERED: VIT K1 PO SCH ×2 (15:30→16:53)
[2017-05-20] MEDS ORDERED: CALCIUM CARB PO SCH ×2 (15:30→16:53)
[2017-05-20] MEDS: POLYETHYLENE GLYCOL 3350 17 GM POWD.PACK PO SCH (15:35)
--- NOTE | 2017-05-20 15:44 | HISTORY AND PHYSICAL ---
PROVIDER: Date of Admission: 05/20/17 Admitting Provider: CHERRY BOJORQUEZ Attending Provider: CHERRY BOJORQUEZ Primary Care Provider: HISTORY OF PRESENT ILLNESS: This is an admission for swing bed status patient Opal Yanez patient recently underwent left total knee arthroplasty has comorbidity of borderline hypertension dyslipidemia and urinary urgency stress incontinence as well past history of breast cancer treated with mastectomy history of diverticulosis without hemorrhage or diverticulitis and recurrent trochanteric bursitis. She lives normally in [place] but because of family present locally in [place] elected to undergo total knee arthroplasty here to be discharged to recover with her family. She was seen preoperatively by myself and started on losartan for hypertension and oxybutynin for urinary stress and urge incontinence with improvement in both. Baseline EKG shows sinus rhythm otherwise unremarkable query borderline hypertensive changes. Surgery went uneventfully she did have postop dizziness and nausea required 1.5 L of bolused normal saline with marked improvement in orthostatic vitals as well as symptoms. She has no fever no cough cold congestion no further nausea some abdominal discomfort with no bowel movement for last 3 days and she normally has daily bowel movements, she has received milk of magnesia and MiraLAX will continue a bowel regimen. Kaufman catheter was discontinued and had slight worsening in her urge incontinence urinalysis is pending and oxybutynin has been restarted there is no dysuria though urinary frequency is persistent . She has no chest pain no palpitations no shortness of breath no PND nor orthopnea. She has participated with physical therapy but becomes winded quickly and is deconditioned. She has been transitioned to swing bed status for ongoing physical therapy prior to returning home to reside with her daughter-in- law and son. 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 and her from an aortic aneurysm ALLERGIES: NKDA REVIEW OF SYSTEMS: per HPI VITAL SIGNS: Vital signs show temperature 98.8 heart rate 60s-70s blood pressure 120s-160s over 60s-80s respiratory rate 14 she has had a 93% on 2 L per nasal cannula PHYSICAL EXAMINATION: Exam she is pleasant no apparent distress no jaundice anemia cyanosis clubbing or lymphadenopathy neck is supple no masses or bruits are appreciated cardiac exam S1-S2 without murmur resp exam clear to auscultation with good good air entry to the bases abdominal examination soft nontender slightly distended no masses and bowel sounds are active extremities she has 2+ dorsal pedal pulses and edema of her left knee status post surgery ice packs currently in place LABORATORY: Hgb 12.1 Assessment and Plan - Date of Encounter Date of Encounter: 05/20/17 (1) Physical deconditioning Status: Acute Assessment and plan: Continue PT/OT, DME and likely transition to home in next few days Current Visit: Yes (2) Hypertension Status: Acute Qualifiers: Hypertension type: essential hypertension Qualified Code(s): I10 - Essential (primary) hypertension Assessment and plan: improved on losartan, continue current dosing and monitor, if needs PRN doses, will increase losartan to 50mg, avoid diuretics as chronically dehydrated. Current Visit: No (3) Mixed urge and stress incontinence Status: Acute Assessment and plan: UA negative, bladder training/Kagels and Oxybutinin Current Visit: No (4) Primary osteoarthritis of left knee Status: Chronic Current Visit: No - Time Spent With Patient Total time spent with greater than 50% in coordination of care (as documented) at patient's floor/unit and/or counseling patient: Greater than 35 minutes
[2017-05-20] MEDS ORDERED: ONDANSETRON ODT 8 MG TAB.RAPDIS PO ONE (20:05)
[2017-05-20] MEDS ORDERED: ONDANSETRON ODT 4 MG TAB.RAPDIS ONE ×2 (20:18→20:28)
[2017-05-20] MEDS: OXYBUTYNIN CHLORIDE 5 MG TABLET PO SCH (21:11)
[2017-05-20] MEDS: DOCUSATE SODIUM 100 MG CAPSULE PO SCH (21:11)
[2017-05-20] MEDS: CELECOXIB 100 MG CAPSULE PO SCH (21:11)
[2017-05-21] MEDS: CELECOXIB 100 MG CAPSULE PO SCH ×2 (08:22→20:15)
[2017-05-21] MEDS: DOCUSATE SODIUM 100 MG CAPSULE PO SCH ×2 (08:22→20:10)
[2017-05-21] MEDS: LOSARTAN POTASSIUM 50 MG TABLET PO SCH (08:22)
[2017-05-21] MEDS: MULTIVITAMINS THERAPEUTIC 1 TABLET PO SCH (08:22)
[2017-05-21] MEDS: OXYBUTYNIN CHLORIDE 5 MG TABLET PO SCH (08:23)
[2017-05-21] MEDS: ACETAMINOPHEN 325 MG TABLET PO PRN (08:23)
[2017-05-21] MEDS: POLYETHYLENE GLYCOL 3350 17 GM POWD.PACK PO SCH (08:24)
[2017-05-21] MEDS: ENOXAPARIN SODIUM 40 MG/0.4 ML SYR SUBCUT SCH (08:24)
--- NOTE | 2017-05-21 10:19 | PROGRESS NOTE: IM APSO ---
Assessment and Plan - Date of Encounter Date of Encounter: 05/21/17 (1) Physical deconditioning Status: Acute Assessment and plan: Continue PT/OT, DME and likely transition to home in next few days (Tuesday with outpatient therapy) Current Visit: Yes (2) Hypertension Status: Acute Assessment and plan: improved on losartan, continue current dosing and monitor, if needs PRN doses, will increase losartan to 50mg, avoid diuretics as chronically dehydrated. Current Visit: No (3) Mixed urge and stress incontinence Status: Acute Assessment and plan: UA negative, bladder training/Kagels and Oxybutinin, a little better last nocte , may change oxybutinin to ER formulation and give nocte Current Visit: No (4) Primary osteoarthritis of left knee Status: Chronic Current Visit: No - Time Spent With Patient Total time spent with greater than 50% in coordination of care (as documented) at patient's floor/unit and/or counseling patient: less than 15 minutes IM: PN Subjective General: good appetite, pain, no fever, no chills HEENT: no headache Cardiovascular: no chest pain, no chest pressure, no palpitations Respiratory: no cough Gastrointestinal: constipation (though had BM), no abdominal pain, no bloating Musculoskeletal: pain, swelling, other (walked with PT several hundred feet and did practice stairs twice) IM: PN Objective Exam - I&O/Vital Signs I&O: Intake & Output 05/20/17 05/21/17 05/21/17 21:59 05:59 13:59 Intake Total 1150 450 Output Total 750 Balance 400 450 Intake: Oral 1150 450 Output: Urine 750 Other: Urine Appearance Clear Urine Color Yellow Voiding Method Toilet Toilet # Voids 6 Vital Signs: Last Vital Signs Temp 36.3 C L 05/20/17 19:00 Pulse 77 05/20/17 19:00 Resp 16 05/20/17 19:45 BP 150/67 05/20/17 19:00 Pulse Ox 90 05/20/17 19:00 Oxygen Delivery Method Room Air - Head Head exam: Present: atraumatic - Eye Eye exam: Present: EOMI - ENT ENT exam: Present: mucous membranes moist - Respiratory Respiratory exam: Present: CTAB - Cardiovascular Cardiovascular exam: Present: RRR - GI/Abdominal GI/Abdominal exam: Present: normal bowel sounds, soft. Absent: tenderness - Lab Labs: Laboratory Last Values Urine Color Yellow 05/20/17 12:39 Urine Appearance Clear 05/20/17 12:39 Urine pH 6.0 (5-7) 05/20/17 12:39 Ur Specific [place] < or = 1.005 (0.001-1.035) 05/20/17 12:39 Urine Protein Negative (NEG - TRACE) 05/20/17 12:39 Urine Ketones Negative (NEGATIVE) 05/20/17 12:39 Urine Blood Negative (NEGATIVE) 05/20/17 12:39 Urine Nitrate Negative (NEGATIVE) 05/20/17 12:39 Urine Bilirubin Negative (NEGATIVE) 05/20/17 12:39 Urine Urobilinogen 0.2mg/dl (normal) (NEG-1mg/dL) 05/20/17 12:39 Ur Leukocyte Esterase Negative (NEGATIVE) 05/20/17 12:39 Urine RBC None seen (0-5/hpf) 05/20/17 12:39 Urine WBC 0-4/hpf (0-4/hpf) 05/20/17 12:39 Ur Squamous Epith Cells 5-10/hpf (<= 15/hpf) 05/20/17 12:39 Urine Bacteria None seen (<10/hpf) 05/20/17 12:39 Urine Mucus None seen (Up to 25%) 05/20/17 12:39 Urine Glucose Normal (NEGATIVE) 05/20/17 12:39 Quality Questions - VTE Prophylaxis Assessment VTE Present on Admission?: No Patient at risk for venous thromboembolism?: Yes VTE Risk Level: Low Risk Pharmaceutical VTE prophylaxis contraindication reason: N/A- VTE prophylaxsis ordered Mechanical VTE prophylaxis contraindication reason: N/A- VTE prophylaxsis ordered (2) Hypertension Qualifiers: Hypertension type: essential hypertension Qualified Code(s): I10 - Essential (primary) hypertension
[2017-05-21] MEDS ORDERED: ONDANSETRON ODT 4 MG TAB.RAPDIS PO PRN (19:32)
[2017-05-21] MEDS: OXYBUTYNIN CHLORIDE ER 5 MG TABLET PO SCH (20:15)
[2017-05-22] MEDS: POLYETHYLENE GLYCOL 3350 17 GM POWD.PACK PO SCH (09:23)
[2017-05-22] MEDS: CELECOXIB 100 MG CAPSULE PO SCH ×2 (09:24→20:41)
[2017-05-22] MEDS: MULTIVITAMINS THERAPEUTIC 1 TABLET PO SCH (09:24)
[2017-05-22] MEDS: LOSARTAN POTASSIUM 50 MG TABLET PO SCH ×2 (09:24→20:41)
[2017-05-22] MEDS: ENOXAPARIN SODIUM 40 MG/0.4 ML SYR SUBCUT SCH (09:24)
[2017-05-22] MEDS: ACETAMINOPHEN 325 MG TABLET PO PRN (09:25)
[2017-05-22] MEDS: DOCUSATE SODIUM 100 MG CAPSULE PO SCH ×2 (09:25→20:41)
--- NOTE | 2017-05-22 12:27 | PROGRESS NOTE: IM APSO ---
Assessment and Plan - Date of Encounter Date of Encounter: 05/22/17 (1) Physical deconditioning Status: Acute Assessment and plan: Continue PT/OT, DME and likely transition to home tomorrow (Tuesday) with outpatient PT this week as well Current Visit: Yes (2) Hypertension Status: Acute Assessment and plan: improved on losartan but will increase losartan to 25mg bid, avoid diuretics as chronically dehydrated. Current Visit: No (3) Mixed urge and stress incontinence Status: Acute Assessment and plan: UA negative, bladder training/Kagels and Oxybutinin, a little better last nocte , may change oxybutinin to ER formulation and give nocte Current Visit: No (4) Primary osteoarthritis of left knee Status: Chronic Current Visit: No - Time Spent With Patient Total time spent with greater than 50% in coordination of care (as documented) at patient's floor/unit and/or counseling patient: 16-24 minutes IM: PN Subjective General: good appetite, pain (controlled with just Tylenol for last 2 days), no fever, no chills HEENT: no headache Cardiovascular: no chest pain, no chest pressure, no palpitations Respiratory: no cough Gastrointestinal: constipation (though had BM's last 2 days), no abdominal pain , no bloating Musculoskeletal: pain, swelling, other (walked with PT several hundred feet and did practice stairs twice yesterday, limited mobility with nursing today) IM: PN Objective Exam - I&O/Vital Signs I&O: Intake & Output 05/21/17 05/22/17 05/22/17 21:59 05:59 13:59 Intake Total 1310 450 Balance 1310 450 Intake: Oral 1310 450 Other: Urine Appearance Clear Urine Color Yellow Yellow Stool Size Moderate Stool Characteristics Liquid Brown Voiding Method Toilet Toilet # Voids 5 # Bowel Movements 3 Vital Signs: Last Vital Signs Temp 37.0 C 05/22/17 06:26 Pulse 87 05/22/17 06:26 Resp 16 05/22/17 09:00 BP 169/97 05/22/17 06:26 Pulse Ox 93 05/22/17 09:00 Oxygen Delivery Method Room Air - Head Head exam: Present: atraumatic - Eye Eye exam: Present: EOMI - ENT ENT exam: Present: mucous membranes moist - Lab Labs: Laboratory Last Values Urine Color Yellow 05/20/17 12:39 Urine Appearance Clear 07/21/17 12:39 Urine pH 6.0 (5-7) 05/20/17 12:39 Ur Specific [place] < or = 1.005 (0.001-1.035) 05/20/17 12:39 Urine Protein Negative (NEG - TRACE) 05/20/17 12:39 Urine Ketones Negative (NEGATIVE) 05/20/17 12:39 Urine Blood Negative (NEGATIVE) 05/20/17 12:39 Urine Nitrate Negative (NEGATIVE) 05/20/17 12:39 Urine Bilirubin Negative (NEGATIVE) 05/20/17 12:39 Urine Urobilinogen 0.2mg/dl (normal) (NEG-1mg/dL) 05/20/17 12:39 Ur Leukocyte Esterase Negative (NEGATIVE) 05/20/17 12:39 Urine RBC None seen (0-5/hpf) 05/20/17 12:39 Urine WBC 0-4/hpf (0-4/hpf) 05/20/17 12:39 Ur Squamous Epith Cells 5-10/hpf (<= 15/hpf) 05/20/17 12:39 Urine Bacteria None seen (<10/hpf) 05/20/17 12:39 Urine Mucus None seen (Up to 25%) 05/20/17 12:39 Urine Glucose Normal (NEGATIVE) 05/20/17 12:39 (2) Hypertension Qualifiers: Hypertension type: essential hypertension Qualified Code(s): I10 - Essential (primary) hypertension
--- NOTE | 2017-05-22 12:36 | DC SUMMARY: IM Note ---
Discharge Summary: IM/Peds Provider: Date of Admission: 05/20/17 Admitting Provider: CHERRY BOJORQUEZ Attending Provider: CHERRY BOJORQUEZ Discharging Provider: CHERRY BOJORQUEZ Primary Care Provider: Discharge Date: 05/22/17 - Diagnosis (1) Physical deconditioning Status: Acute (2) Hypertension Status: Acute Qualifiers: Hypertension type: essential hypertension Qualified Code(s): I10 - Essential (primary) hypertension (3) Mixed urge and stress incontinence Status: Acute (4) Primary osteoarthritis of left knee Status: Chronic - Time Spent with Patient Total time spent providing and/or coordinating discharge services: Discharge - Patient/Caregiver Discharge Instructions Activity Level: As directed by physical therapy an orthopedics, no driving until 6 weeks post op. Diet: cardiac prudent and no added salt Follow up: DANNIE UGALDE MD [ACTIVE (Staff Physician)] - 06/13/17 9:15 am CHERRY BOJORQUEZ MD [Primary Care Provider] - 2 Weeks (or covering physician hypertension f/u) Overall discharge status: patient is progressing back to baseline Home Medications: Celecoxib [Celebrex*] 200 mg PO BID #30 Docusate Sodium [Colace*] 100 mg PO BID #100 Enoxaparin Sodium [LOVENOX 40mg/0.4mL*] 40 mg SUBCUT DAILY #10 syr Losartan Potassium [Cozaar*] 25 mg PO BID #30 Ondansetron Odt [Zofran Odt*] 4 mg PO Q6H PRN #12 PRN Reason: Nausea/Vomiting, Use 1st Oxybutynin Chloride ER [Oxybutynin Chloride ER*] 5 mg PO HS #30 oxyCODONE HCL IR [Oxy Ir*] 5 mg PO Q3H PRN #30 PRN Reason: Pain, Severe Able To Take Po Orders: Outpatient Physical Therapy Eval & Treat Location: Determined By Patient Disposition: HOME, SELF-CARE Discharge Summary Data - Medication History Medication History: Home Medications Calcium Carb/Vitamin D3/Vit K1 [Citracal Soft Chew] 1 each PO MOTUWETHFR Acetaminophen [Tylenol*] 325 - 650 mg PO Q4H PRN 05/20/17 Celecoxib [Celebrex*] 200 mg PO BID 05/20/17 Docusate Sodium [Colace*] 100 mg PO BID 05/20/17 Enalaprilat Dihydrate [Vasotec] 0.625 mg IV Q6H PRN 05/20/17 Enoxaparin Sodium [LOVENOX 40mg/0.4mL*] 40 mg SUBCUT DAILY syr 05/20/17 Lactated Ringers [Lr 1000 ml Bag] 1,000 ml IV CONT 05/20/17 Losartan Potassium [Cozaar*] 25 mg PO DAILY 05/20/17 Losartan Potassium [Cozaar*] 50 mg PO DAILY 05/20/17 Magnesium Hydroxide [Milk of Magnesia*] 30 ml PO BID PRN 05/20/17 Multivitamins,Therapeutic [Thera Multivitamin*] 1 tab PO DAILY 05/20/17 Normal Saline [Sodium Chloride 0.9% 1000 ml] 1,000 ml IV PRN PRN 05/20/17 Normal Saline [Sodium Chloride 0.9% 500 ml] 500 ml IV ONCE 05/20/17 Ondansetron HCl [Zofran] 4 mg IV Q4H PRN 05/20/17 Oxybutynin Chloride [Ditropan*] 2.5 mg PO BID 05/20/17 Polyethylene Glycol 3350 [Miralax*] 17 gm PO DAILY 05/20/17 oxyCODONE HCL IR [Oxy Ir*] 5 - 10 mg PO Q3H PRN 05/20/17 Inpatient Medications 05/20/17 15:24 Acetaminophen [Tylenol] 650 mg PO Q4H PRN Enalaprilat Dihydrate [Vasotec] 0.625 mg IV Q6H PRN Magnesium Hydroxide [Milk of Magnesia] 30 ml PO BID PRN oxyCODONE HCL IR [Oxy Ir] 5 mg PO Q3H PRN 05/20/17 16:00 Polyethylene Glycol 3350 [miraLAX] 17 gm PO DAILY 05/20/17 21:00 Celecoxib [CeleBREX] 200 mg PO BID Docusate Sodium [Colace] 100 mg PO BID 05/21/17 09:00 Enoxaparin Sodium [Lovenox] 40 mg SUBCUT DAILY Losartan Potassium [Cozaar] 25 mg PO DAILY Multivitamins,Therapeutic [Thera] 1 tab PO DAILY 05/21/17 19:32 Ondansetron Odt [Zofran Odt] 4 mg PO Q6H PRN 05/21/17 21:00 Oxybutynin Chloride ER [Ditropan ER] 5 mg PO HS 05/22/17 21:00 Losartan Potassium [Cozaar] 25 mg PO BID 05/23/17 09:00 Calcium Carb/Vitamin D3/Vit K1 [Citracal Soft Chew] 1 each PO MOTUWETHFR Procedures and tests throughout hospitalization: Completed Lab Orders 05/20/17 12:39 UA W/ MICRO -CULTURE IF IND [URINE] Routine Pending Orders 05/20/17 12:39 Admit: Swing Bed Routine Activity: Ambulate with Assist TID Activity: Knee Extension . Apply ice to affected area . Dressing Change PRN Incentive Spirometry Q12H May shower PRN Obtain weight PRN Resuscitation Status Routine TEJINDER Hose . Titrate Oxygen TITRATE B/W 90-95% Vital Signs QSHIFT VS 05/20/17 15:24 Acetaminophen [Tylenol] 650 mg PO Q4H PRN Enalaprilat Dihydrate [Vasotec] 0.625 mg IV Q6H PRN Magnesium Hydroxide [Milk of Magnesia] 30 ml PO BID PRN oxyCODONE HCL IR [Oxy Ir] 5 mg PO Q3H PRN 05/20/17 16:00 Polyethylene Glycol 3350 [miraLAX] 17 gm PO DAILY 05/20/17 21:00 Celecoxib [CeleBREX] 200 mg PO BID Docusate Sodium [Colace] 100 mg PO BID 05/20/17 Dinner Regular [DIET] 05/21/17 09:00 Enoxaparin Sodium [Lovenox] 40 mg SUBCUT DAILY Losartan Potassium [Cozaar] 25 mg PO DAILY Multivitamins,Therapeutic [Thera] 1 tab PO DAILY 05/21/17 19:32 Ondansetron Odt [Zofran Odt] 4 mg PO Q6H PRN 05/21/17 21:00 Oxybutynin Chloride ER [Ditropan ER] 5 mg PO HS 05/22/17 21:00 Losartan Potassium [Cozaar] 25 mg PO BID 05/23/17 09:00 Calcium Carb/Vitamin D3/Vit K1 [Citracal Soft Chew] 1 each PO MOTUWETHFR - Impressions Ms. Yanez is an 81-year-old lady with elevated LFTs, borderline hypertension prior to coming to [place] and now hypertension requiring losartan for therapy, dyslipidemia and severe osteoarthritis. She is now status post a left total knee arthroplasty and has transitioned from inpatient to swing bed status. At this time she is markedly improved working with physical therapy, taking Tylenol only for pain control and yesterday was able to ambulate 250 feet with a front wheel walker as well as climb practice steps twice. Anticipated she will be able to discharge home on May 23 to continue her current iteration of medications as well as pain control as needed with Percocet and continue outpatient physical therapy. She should not drive until 6 weeks. She will be living with her son and [id number] while convalescing prior to returning to [place]. IM: Discharge Physical Exam - I&O/Vital Signs I&O: Intake & Output 05/21/17 05/22/17 05/22/17 21:59 05:59 13:59 Intake Total 1310 450 Balance 1310 450 Intake: Oral 1310 450 Other: Urine Appearance Clear Urine Color Yellow Yellow Stool Size Moderate Stool Characteristics Liquid Brown Voiding Method Toilet Toilet # Voids 5 # Bowel Movements 3 Vital Signs: Last Vital Signs Temp 37.0 C 05/22/17 06:26 Pulse 87 05/22/17 06:26 Resp 16 05/22/17 09:00 BP 169/97 05/22/17 06:26 Pulse Ox 93 05/22/17 09:00 Oxygen Delivery Method Room Air - Head Head exam: Present: atraumatic - Eye Eye exam: Present: EOMI - ENT ENT exam: Present: mucous membranes moist - Respiratory Respiratory exam: Present: CTAB - Cardiovascular Cardiovascular exam: Present: RRR - GI/Abdominal GI/Abdominal exam: Present: normal bowel sounds, soft. Absent: tenderness
[2017-05-22 18:07] VITALS: BP 158/83; PULSE 71; TEMP 98.3
--- NOTE | 2017-05-22 19:05 | PROGRESS NOTE: Orthopedics ---
Orthopedic PN Subjective - Subjective Principal Diagnosis: s/p left total knee arthroplasy Post-op Day: 5 Interval history: Pt doing well. Pain well controlled; only using Tylenol for pain today. Ambulating well today. Ortho PN Objective Exam - Latest Vital Signs and I&O Latest Vital Signs/I&O: Vital Signs Temp 36.8 C 05/22/17 18:06 Pulse 71 05/22/17 18:06 Resp 24 05/22/17 18:06 BP 158/83 05/22/17 18:06 Pulse Ox 90 05/22/17 18:06 Intake & Output 05/22/17 05/22/17 05/23/17 05:59 17:59 05:59 Intake Total 450 1660 Balance 450 1660 Intake: Oral 450 1660 Other: Urine Appearance Clear Urine Color Yellow Stool Size Small Voiding Method Toilet Toilet # Voids 6 # Bowel Movements 1 - Post-Operative Exam Post-op Day: 5 Dressing Status: dry & intact Drainage Amount: none Distal Pulses: +2 Active Motor: intact Shaji's sign: Negative Calf tenderness: no Weight bearing status: full Additional Exam: CPM at room. - Lab Labs: Laboratory Last Values Urine Color Yellow 05/20/17 12:39 Urine Appearance Clear 05/20/17 12:39 Urine pH 6.0 (5-7) 05/20/17 12:39 Ur Specific [place] < or = 1.005 (0.001-1.035) 05/20/17 12:39 Urine Protein Negative (NEG - TRACE) 05/20/17 12:39 Urine Ketones Negative (NEGATIVE) 05/20/17 12:39 Urine Blood Negative (NEGATIVE) 05/20/17 12:39 Urine Nitrate Negative (NEGATIVE) 05/20/17 12:39 Urine Bilirubin Negative (NEGATIVE) 05/20/17 12:39 Urine Urobilinogen 0.2mg/dl (normal) (NEG-1mg/dL) 05/20/17 12:39 Ur Leukocyte Esterase Negative (NEGATIVE) 05/20/17 12:39 Urine RBC None seen (0-5/hpf) 05/20/17 12:39 Urine WBC 0-4/hpf (0-4/hpf) 05/20/17 12:39 Ur Squamous Epith Cells 5-10/hpf (<= 15/hpf) 05/20/17 12:39 Urine Bacteria None seen (<10/hpf) 05/20/17 12:39 Urine Mucus None seen (Up to 25%) 05/20/17 12:39 Urine Glucose Normal (NEGATIVE) 05/20/17 12:39 - Allied Health Notes Allied health notes reviewed: nursing, PT Assessment and Plan-Ortho - Date of Encounter Date of Encounter: 05/22/17 (1) S/P total knee arthroplasty Status: Acute Assessment and plan: Pt will continue ambulating with PTx. Continue with DVT PPx. Likely d/c to home tomorrow. Current Visit: Yes (1) S/P total knee arthroplasty Qualifiers: Laterality: left Qualified Code(s): Z96.652 - Presence of left artificial knee joint
[2017-05-22] MEDS: OXYBUTYNIN CHLORIDE ER 5 MG TABLET PO SCH (21:00)
--- NOTE | 2017-05-23 08:47 | PROGRESS NOTE: IM APSO ---
Assessment and Plan - Date of Encounter Date of Encounter: 05/23/17 (1) Physical deconditioning Status: Acute Assessment and plan: Continue PT/OT, DME and likely transition to home today with outpatient PT this week as well Current Visit: Yes (2) Hypertension Status: Acute Assessment and plan: improved on losartan but will increase losartan to 25mg bid, avoid diuretics as chronically dehydrated. Current Visit: No (3) Mixed urge and stress incontinence Status: Acute Assessment and plan: UA negative, bladder training/[place] and Oxybutinin, a little better last nocte , may change oxybutinin to ER formulation and give nocte Current Visit: No (4) Primary osteoarthritis of left knee Status: Chronic Current Visit: No - Time Spent With Patient Total time spent with greater than 50% in coordination of care (as documented) at patient's floor/unit and/or counseling patient: 16-24 minutes IM: PN Subjective General: good appetite, pain (controlled with just Tylenol for last 2 days), no fever, no chills HEENT: no headache Cardiovascular: no chest pain, no chest pressure, no palpitations Respiratory: no cough Gastrointestinal: constipation (though had BM's last 2 days), no abdominal pain , no bloating Musculoskeletal: pain, swelling, other (currently ambulating with OT, front wheeled walker and looks/feels great, disappointed by scar size only (semi joking).) IM: PN Objective Exam - I&O/Vital Signs I&O: Intake & Output 05/22/17 05/23/17 05/23/17 21:59 05:59 13:59 Intake Total 1660 400 Balance 1660 400 Intake: Oral 1660 400 Other: Urine Appearance Clear Urine Color Yellow Stool Size Small Voiding Method Toilet Toilet # Voids 6 3 # Bowel Movements 1 Vital Signs: Last Vital Signs Temp 36.8 C 05/22/17 18:06 Pulse 71 05/22/17 18:06 Resp 16 05/22/17 19:30 BP 158/83 05/22/17 18:06 Pulse Ox 90 05/23/17 08:23 Oxygen Delivery Method Room Air - Head Head exam: Present: atraumatic - Eye Eye exam: Present: EOMI - ENT ENT exam: Present: mucous membranes moist - Psychiatric Psychiatric exam: Present: normal affect, normal mood - Allied Health Notes Allied health notes reviewed: nursing, OT, PT - Lab Labs: Laboratory Last Values Urine Color Yellow 05/20/17 12:39 Urine Appearance Clear 05/20/17 12:39 Urine pH 6.0 (5-7) 05/20/17 12:39 Ur Specific [place] < or = 1.005 (0.001-1.035) 05/20/17 12:39 Urine Protein Negative (NEG - TRACE) 05/20/17 12:39 Urine Ketones Negative (NEGATIVE) 05/20/17 12:39 Urine Blood Negative (NEGATIVE) 05/20/17 12:39 Urine Nitrate Negative (NEGATIVE) 05/20/17 12:39 Urine Bilirubin Negative (NEGATIVE) 05/20/17 12:39 Urine Urobilinogen 0.2mg/dl (normal) (NEG-1mg/dL) 05/20/17 12:39 Ur Leukocyte Esterase Negative (NEGATIVE) 05/20/17 12:39 Urine RBC None seen (0-5/hpf) 05/20/17 12:39 Urine WBC 0-4/hpf (0-4/hpf) 05/20/17 12:39 Ur Squamous Epith Cells 5-10/hpf (<= 15/hpf) 05/20/17 12:39 Urine Bacteria None seen (<10/hpf) 05/20/17 12:39 Urine Mucus None seen (Up to 25%) 05/20/17 12:39 Urine Glucose Normal (NEGATIVE) 05/20/17 12:39 (2) Hypertension Qualifiers: Hypertension type: essential hypertension Qualified Code(s): I10 - Essential (primary) hypertension
[2017-05-23] MEDS: CELECOXIB 100 MG CAPSULE PO SCH (08:54)
[2017-05-23] MEDS: MULTIVITAMINS THERAPEUTIC 1 TABLET PO SCH (08:54)
[2017-05-23] MEDS: LOSARTAN POTASSIUM 50 MG TABLET PO SCH (08:55)
[2017-05-23] MEDS: DOCUSATE SODIUM 100 MG CAPSULE PO SCH (08:55)
[2017-05-23] MEDS: ENOXAPARIN SODIUM 40 MG/0.4 ML SYR SUBCUT SCH (08:55)
[2017-05-23] MEDS: POLYETHYLENE GLYCOL 3350 17 GM POWD.PACK PO SCH (08:58)
[2017-05-23] MEDS ORDERED: VITAMIN D3 PO SCH (09:00)
[2017-05-23] MEDS ORDERED: VIT K1 PO SCH (09:00)
[2017-05-23] MEDS ORDERED: CALCIUM CARB PO SCH (09:00)
[2017-05-23 09:58] VITALS: RESP 18; O2SAT 92
== END 2017-05-23 09:01 | disposition home or self-care (01) | DRG 561 ==
LOC: IN 09:12
PROVIDERS: ADMIT Hospitalist; ATTEND Hospitalist
DX: Z47.1 Aftercare following joint replacement surgery (principal); Z96.652 Presence of left artificial knee joint; Z85.3 Personal history of malignant neoplasm of breast; Z85.828 Personal history of other malignant neoplasm of skin; K57.90 Diverticulosis of intestine, part unspecified, without perforation or abscess without bleeding; R03.0 Elevated blood-pressure reading, without diagnosis of hypertension; R53.1 Weakness; E78.5 Hyperlipidemia, unspecified; N39.46 Mixed incontinence; M15.9 Polyosteoarthritis, unspecified; Z79.899 Other long term (current) drug therapy
CPT/HCPCS: 81001; 94760; J1650; J2405